=== PATIENT | male | born 1955 | race Caucasian/White ===

== ENCOUNTER 2018-04-24 06:21 | Observation (INO) ==
[2018-04-24] MEDS ORDERED: Chlorhexidine Gluconate 2% 1 Pack (2 Cloths) TOPICAL ONE (07:04)
[2018-04-24] MEDS ORDERED: Metoprolol Tartrate 25 MG Tablet PO ONE (07:04)
[2018-04-24] MEDS ORDERED: Vancomycin Inj 1,000 MG in Sodium Chlor 0.9% Inj 250 ML IV.SIG SCH (07:06)
[2018-04-24] MEDS ORDERED: Sod Chloride 0.9% Inj 1,000 ML IV.SIG ONE (07:15)
[2018-04-24] MEDS ORDERED: Ketamine Inj 50 MG/5 ML Syringe IV.PUSH ONE (07:54)
[2018-04-24] MEDS ORDERED: Propofol Inj 500 MG/50 ML Vial ONE (07:55)
[2018-04-24] MEDS ORDERED: Thrombin Topical Soln 5,000 UNIT Vial TOPICAL ONE (08:00)
[2018-04-24] MEDS ORDERED: Sodium Chlor 0.9% Inj 500 ML IV.SIG SCH (08:00)
[2018-04-24] MEDS ORDERED: Gelatin Size 100 Topical Foam ONE (08:00)
[2018-04-24] MEDS ORDERED: Bupivacaine/Epinephrine 0.5% Inj 50 ML Vial ONE (08:10)
[2018-04-24] MEDS ORDERED: Neostigmine Inj 5 MG/5 ML Syringe IV.PUSH ONE (08:32)
[2018-04-24] MEDS ORDERED: Glycopyrrolate Inj 1 MG/5 ML Syringe IV.PUSH ONE (08:32)
[2018-04-24] MEDS ORDERED: Phenylephrine/NS 1000 MCG/10ML Syringe IV.PUSH ONE (08:32)
[2018-04-24] MEDS ORDERED: Lidocaine PF 1% Inj 5 ML Syringe INFILTRATN ONE (08:32)
[2018-04-24] MEDS ORDERED: Menthol 5.8 MG Lozenge BUCCAL PRN (11:43)
[2018-04-24] MEDS ORDERED: Morphine Inj 4 MG/ML Vial IV.PUSH PRN (11:43)
[2018-04-24] MEDS ORDERED: Aluminum/Magnesium/Simethacone Susp 30 ML UDC PO PRN (11:43)
[2018-04-24] MEDS ORDERED: Bisacodyl 10 MG Supp RECTAL PRN (11:43)
[2018-04-24] MEDS ORDERED: Acetaminophen 325 MG Tablet PO PRN (11:43)
[2018-04-24] MEDS ORDERED: *morphine SULFATE 4 MG/ML PERIprocedure ONLY ONE ×3 (11:53→12:15)
[2018-04-24] MEDS ORDERED: ceFAZolin 2 GM Premix Inj 2 GM/50 ML PIGGYBACK IV.SIG SCH (12:00)
[2018-04-24] MEDS ORDERED: fentaNYL Citrate Inj 100 MCG/2 ML Ampul ONE (12:22)
[2018-04-24] MEDS: Carisoprodol 350 MG Tablet PO SCH ×2 (12:53→17:11)
[2018-04-24] MEDS: ceFAZolin 2 GM/NS 100 ML IV; Q8H IV.SIG SCH ×4 (12:54→22:57)
[2018-04-24] MEDS ORDERED: ICOSAPENT ETHYL 2 GM PO SCH (21:00)
[2018-04-24] MEDS ORDERED: Zolpidem Tartrate 5 MG Tablet PO PRN (21:00)
[2018-04-24] MEDS ORDERED: [UNRECOGNIZED DRUG - OTHER] PO SCH (21:00)
[2018-04-24] MEDS: Senna/Docusate Sodium 8.6/50 MG Tablet PO SCH (21:01)
[2018-04-25] MEDS: ceFAZolin 2 GM/NS 100 ML IV; Q8H IV.SIG SCH ×2 (05:57)
[2018-04-25] MEDS: Carisoprodol 350 MG Tablet PO SCH (08:26)
[2018-04-25] MEDS: Senna/Docusate Sodium 8.6/50 MG Tablet PO SCH (08:26)
== END 2018-04-25 11:54 | disposition home or self-care (01) ==
LOC: HSDI 06:21 → HSDC 06:21 → N06 12:42
PROVIDERS: ADMIT Neurological Surgery; ATTEND Neurological Surgery